=== PATIENT | female | born 1990 | race Caucasian/White ===

== ENCOUNTER 2017-08-08 19:14 | Emergency (ER) | payer MEDICAID ==
[~2017-08-08] VITALS: Ht 167.6 cm; Wt 68.0 kg
--- NOTE | 2017-08-08 20:16 | NUR ---
PT STATES SHE JAMMED HER L THUMB IN A DOOR THIS MORNING. ACRYLIC NAIL INTACT.
--- NOTE | 2017-08-08 20:39 | NUR ---
DR DANIELA DANIELLE MD W/ PT FOR MSE.
[2017-08-08] MEDS ORDERED: NEOMY/BACITRA/POLYMYXIN B OINT UD PACKET TP ONE ×2 (21:39→21:45)
--- NOTE | 2017-08-08 21:50 | NUR ---
Patient discharged to home in stable conditon. Written and verbal after care instructions given. Patient verbalizes understanding of instructions. Pt took all personal belingings. No disress noted.
[2017-08-08 22:07] VITALS: BP 116/74
== END 2017-08-08 22:10 | disposition home or self-care (01) ==
LOC: ER 19:16
DX: S60.222A Contusion of left hand, initial encounter (principal); X58.XXXA Exposure to other specified factors, initial encounter; Y92.89 Other specified places as the place of occurrence of the external cause; Y93.89 Activity, other specified; Y99.8 Other external cause status
CPT/HCPCS: 73110; 73130; 99284; A4663